=== PATIENT | male | born 1980 | race Caucasian/White ===

== ENCOUNTER 2019-06-07 17:22 | Emergency (ER) | payer BC, SELFPAY ==
[2019-06-07 17:26] VITALS: BP 142/103; PULSE 85; RESP 16; TEMP 37.1; O2SAT 99; BMI 22.7
[2019-06-07 18:24] LABS: Basophils # 0.1 10^3/uL (0.0-0.1); Basophils % 0.6 %; Eosinophils # 0.1 10^3/uL (0.0-0.8); Eosinophils % 1.7 %; Hematocrit 46.5 % (37.0-47.0); Lymphocytes # 1.4 10^3/uL (0.8-4.8); Lymphocytes % 16.7 %; Mean Corpuscular HGB Conc 34.4 g/dL (30.0-36.0); Mean Corpuscular Hemoglobin 33.1 pg (28.0-34.0); Mean Corpuscular Volume 96.1 fL (81-99); Mean Platelet Volume 9.3 fL (7.4-10.4); Monocytes % 11.8 %; Neutrophils # 5.7 10^3/uL (1.8-7.7); Nucleated Red Blood Cells % 0 %; Platelet Count 238 10^3/cmm (130-400); Red Blood Count 4.84 10^6/uL (4.1-5.3); Red Cell Distribution Width 11.8 % (12.1-15.1); White Blood Count 8.3 10^3/uL (4.0-10.0)
[2019-06-07 18:39] LABS: Alanine Aminotransferase 44 U/L (0-33); Albumin Level 5.1 g/dL (3.5-5.2); Alkaline Phosphatase 83 IU/L (35-105); Anion Gap 18.4 (5-19); Aspartate Amino Transferase 61 U/L (0-32); Blood Urea Nitrogen 6 mg/dL (6-20); Calcium 10.2 mg/dL (8.5-10.5); Carbon Dioxide 26 mmol/L (22-29); Chloride 97 mmol/L (98-107); Glomerular Filtration Rate 79.9 mL/min (90-130); Glucose 103 mg/dL (65-115); Lipase 46 U/L (13-60); Potassium 4.4 mmol/L (3.5-5.1); Sodium 137 mmol/L (136-145); Total Bilirubin 0.8 mg/dL (0.15-1.2); Total Protein 8.1 g/dL (6.6-8.7)
[2019-06-07 19:48] LABS: Add Urine Microscopic? NO
[2019-06-07 19:52] LABS: Bilirubin Urine Neg (NEGATIVE); Blood Urine Neg (Negative); Glucose Urine UA Norm (Normal); Ketones Urine 1+ (Negative); Leukocyte Esterase Urine Negative (Negative); Nitrate Urine Negative (Negative); Protein Urine Neg (Negative); Specific Gravity, Urine 1.015 (1.005-1.030); Urine Appearance Clear (CLEAR); Urine Color Yellow (Yellow); Urobilinogen Urine Norm (Negative); pH Urine 6 (5-7)
--- NOTE | 2019-06-07 20:25 | ED_ITS ---
HPI - Abdominal Pain General: Chief Complaint: Abdominal Pain Stated Complaint: BACK AND ABD PAIN Time Seen by Provider: 06/07/19 20:25 Source: patient Mode of arrival: ambulatory Limitations: no limitations History of Present Illness: HPI narrative: Patient comes in today with right upper quadrant abdominal pain. Patient reports nausea and vomiting with this episode lasting 2 days. Patient states that he has had occasional episodes for the last few months. Patient does have a history of alcohol consumption. And smoking. Patient denies any routine medications. Patient appears well. Patient appears in no pain at this time. Associated Symptoms: Reports nausea and vomiting Review of Systems General: Reports: 10 or more systems reviewed and unremarkable except in HPI and below GI: Reports: abdominal pain, nausea and vomiting PFS ED PFSH: Social History Smoking and tobacco status: current every day smoker Alcohol intake: current Physical Exam Const: COMMON NORMALS: no apparent distress and oriented x3 GENERAL APPEARANCE: cooperative HENMT: COMMON NORMALS: normocephalic, external ears normal, EAC's normal, TM's normal bilaterally and external nose normal HEAD & SCALP: normal to inspection and normocephalic FACE & SINUS: normal facial exam NOSE: exter nal nose normal GENERAL EAR: hearing not grossly impaired EXTERNAL EAR: Yes external ears normal EXTERNAL AUDITORY CANAL: EAC's normal TYMPANIC MEMBRANE: TM's normal bilaterally MOUTH: oral and palatal mucosa normal THROAT: posterior oropharynx normal Eye: COMMON NORMALS: PERRL and EOMs intact bilaterally PUPIL: Yes PERRL Neck/C-Spine: COMMON NORMALS: full ROM and no lymphadenopathy Lymph: LYMPHATIC: no lymphedema noted Chest: COMMONS NORMALS: inspection of chest normal and palpation of chest normal Resp: COMMON NORMALS: normal respiratory effort and clear to auscultation bilaterally AUSCULTATION: clear to auscultation bilaterally Cardio: COMMON NORMALS: regular rate and regular rhythm RATE: regular rate RHYTHM: regular rhythm GI: COMMON NORMALS: normal to inspection, nondistended, normoactive bowel sounds PALPATION: Yes tender Details: RUQ : COMMON NORMALS: Yes no CVA tenderness BLADDER/KIDNEY EXAM: Yes no CVA tenderness Back/Pelvis: COMMON NORMALS: no CVA tenderness and thoracic and lumbar spine normal to inspection Extremity: COMMON NORMALS: normal to inspection GENERAL: No edema Neuro: COMMON NORMALS: oriented x3, moves all extremities and no focal motor deficits Psych: COMMON NORMALS: mental status grossly normal and cooperative Skin: COMMON NORMALS: no rashes or lesions noted GENERAL SKIN EXAM: no rashes or lesions noted Course Vital Signs: Vital signs: Vital Signs Temperature 98.8 F 06/07/19 17:26 Pulse Rate 73 06/07/19 21:55 Respiratory Rate 18 06/07/19 21:55 Blood Pressure 150/96 06/07/19 21:55 Pulse Oximetry 97 06/07/19 21:55 MDM - Abdominal Pain MDM Narrative: Medical decision making narrative: Patient comes in today with waxing and waning episodes of nausea vomiting and right upper quadrant abdominal pain. Patient does drink a lot of alcohol he admits to. Patient appears well. Patient appears in no pain at this time. Exam notes abdomen is soft with some epigastric tenderness but no significant right upper quadrant tenderness. Bowel sounds are present throughout. Skin is warm and dry. Vital signs are normal. Differential diagnosis includes cholelithiasis, cholecystitis, pancreatitis, alcoholic hepatitis, alcoholic pancreatitis, gastroenteritis, gastritis. Laboratory values noted some mild elevation in the AST and ALT. Lipase was normal. CBC was insignificant. And metabolic panel noted 137 sodium of 4.[address] scan of the abdomen noted no acute abdominal problem. Ultrasound of the gallbladder noted no gallstones or gallbladder wall thickening suggestive of infection. Reviewed exam with patient recommendations for treatment and need for follow-up. Patient reports understanding and agreed to plan. Lab Data: Labs: Lab Results 06/07/19 06/07/19 06/07/19 Range/Units 18:05 18:05 19:30 WBC 8.3 (4.0-10.0) 10^3/ uL RBC 4.84 (4.1-5.3) 10^6/u L Hgb 16.0 H (11.5-15.3) g/dL Hct 46.5 (37.0-47.0) % MCV 96.1 (81-99) fL MCH 33.1 (28.0-34.0) pg MCHC 34.4 (30.0-36.0) g/dL RDW 11.8 L (12.1-15.1) % Plt Count 238 (130-400) 10^3/c mm MPV 9.3 (7.4-10.4) fL Neut % (Auto) 69.0 % Lymph % (Auto) 16.7 % Mcdowell % (Auto) 11.8 % Eos % (Auto) 1.7 % Baso % (Auto) 0.6 % Neut # (Auto) 5.7 (1.8-7.7) 10^3/u L Lymph # (Auto) 1.4 (0.8-4.8) 10^3/u L Mcdowell # (Auto) 1.0 H (0.2-0.9) 10^3/u L Eos # (Auto) 0.1 (0.0-0.8) 10^3/u L Baso # (Auto) 0.1 (0.0-0.1) 10^3/u L Nucleated RBC % (a uto) 0 % Nucleated RBCs # 0.0 /100WBC Sodium 137 (136-145) mmol/L Potassium 4.4 (3.5-5.1) mmol/L Chloride 97 L (98-107) mmol/L Carbon Dioxide 26 (22-29) mmol/L Anion Gap 18.4 (5-19) BUN 6 (6-20) mg/dL Creatinine 0.8 (0.5-0.9) mg/dL GFR Calculation 79.9 L (90-130) mL/min Glucose 103 (65-115) mg/dL Calcium 10.2 (8.5-10.5) mg/dL Total Bilirubin 0.8 (0.15-1.2) mg/dL AST 61 H (0-32) U/L ALT 44 H (0-33) U/L Alkaline Phosphata se 83 (35-105) IU/L Total Protein 8.1 (6.6-8.7) g/dL Albumin 5.1 (3.5-5.2) g/dL Globulin 3.0 (1.3-4.6) g/dL Lipase 46 (13-60) U/L Urine Color Yellow (Yellow) Urine Appearance Clear (CLEAR) Urine pH 6 (5-7) Ur Specific Gravit y 1.015 (1.005-1.030) Urine Protein Neg (Negative) Urine Glucose (UA) Norm (Normal) Urine Ketones 1+ H (Negative) Urine Blood Neg (Negative) Urine Nitrate Negative (Negative) Urine Bilirubin Neg (NEGATIVE) Urine Urobilinogen Norm (Negative) mg/dL Ur Leukocyte Jyoti ase Negative (Negative) Discharge Plan Discharge Patient Disposition: Home, Self-Care Clinical Impression: Abdominal pain Qualifiers: Abdominal location: epigastric Qualified Code(s): R10.13 - Epigastric pain Condition: Stable Prescriptions: New famotidine 20 mg tablet 20 mg PO BID Qty: 60 RF: 0 ondansetron HCl 4 mg tablet 4 mg PO Q8H PRN (Reason: nausea and vomiting) Qty: 7 RF: 0 Discharge Orders: Discharge Order (Routine); Ordered 06/07/19 Ordered By: Juan Freeman Discharge Diet: Usual diet Discharge Activity: Increase activity as tolerated Patient Instructions: Abdominal Pain (ED) Activity Restrictions/Additional Instructions: try to limit alcohol to two drinks a day Activity as tolerated Healthy diet Medications as directed follow-up with primary care in one week Discharge Date/Time: 06/07/19 21:56 Coding Level of Care Code ED Feather Drying Machine Operator for Radha Fwd Exam Comprehensive
--- NOTE | 2019-06-07 20:29 | US_ITS ---
WS: [id number] ABDOMINAL ULTRASOUND LIMITED REASON FOR VISIT: right upper quad pain, n/v TECHNIQUE: Grayscale and Doppler ultrasound examination of the abdomen. FINDINGS: Pancreas: Within normal limits. Abdominal aorta and IVC: Within normal limits. Liver: Liver measures 10.71 cm in length. Normal hepatopedal portal circulation. Gallbladder: Gallbladder wall thickness measures 2.7 mm. Common bile duct measured 0.48 cm. The gallbladder wall slightly thickened no stones in the gallbladder. Right kidney: Right kidney measures 9.7 cm x 4.7 cm x 4.6 cm. Right kidney cortex measures 1.34 cm. N o stones or hydronephrosis. US/US abdomen limited [id number] IMPRESSION: Mildly thickened wall gallbladder suggests but not conclusive of cholecystitis.
--- NOTE | 2019-06-07 20:29 | CTR_ITS ---
PROCEDURE INFORMATION: Exam: CT Abdomen And Pelvis With Contrast Exam date and time: 06/07/2019 8:54 PM Age: 38 years old Clinical indication: Nausea and vomiting; Abdominal pain; Additional info: N/v, abd pain TECHNIQUE: Imaging protocol: Computed tomography of the abdomen and pelvis with intravenous contrast. Total DLP: 518.99 mGy-cm Radiation optimization: All CT scans at this facility use at least one of these dose optimization techniques: automated exposure control; mA and/or kV adjustment per patient size (includes targeted exams where dose is matched to clinical indication); or iterative reconstruction. Contrast material: OMNI 300; Contrast volume: 95 ml; Contrast route: IV; COMPARISON: No relevant prior studies available. FINDINGS: Liver: Unremarkable. No mass. Gallbladder and bile ducts: Normal. No calcified stones. No ductal dilation. Pancreas: Normal. No ductal dilation. Spleen: Normal. No splenomegaly. Adrenals: Normal. No mass. Kidneys and ureters: Normal. No hydronephrosis. Stomach and bowel: Unremarkable. No obstruction. No mucosal thickening. Appendix: The appendix is not clearly identified. No definitive evidence of appendicitis. Intraperitoneal space: Unremarkable. No free air. No significant fluid collection. Vasculature: Unremarkable. No abdominal aortic aneurysm. Lymph nodes: Unremarkable. No enlarged lymph nodes. Bladder: Unremarkable as visualized. Reproductive: Unremarkable as visualized. Bones/joints: Unremarkable. No acute fracture. Soft tissues: Unremarkable. CT/CT abdomen pelvis w con* [id number] IMPRESSION: 1. The appendix is not clearly identified this examination. No definitive evidence of appendicitis. 2. No other visible evidence of active or acute abdominal or pelvic pathologic process. Radiation Dose CTDIVOL = (mGy): DLP = 518.99 (mGy-cm)
[2019-06-07 20:36] VITALS: BP 170/104; PULSE 73; RESP 20; O2SAT 97
[2019-06-07 21:05] VITALS: BP 148/94; PULSE 70; RESP 16; O2SAT 97
[2019-06-07] MEDS: iohexol 300 mg/mL 100 mL Btl 95 ML IV (21:10)
[2019-06-07 21:42] VITALS: PULSE 73; RESP 16; O2SAT 97
[2019-06-07 21:55] VITALS: BP 150/96; PULSE 73; RESP 18; O2SAT 97
== END 2019-06-07 21:56 | disposition home or self-care (01) ==
PROVIDERS: Emergency Medicine; Emergency Provider Nurse Practitioner Family
DX: R10.9 Unspecified abdominal pain (principal); F17.200 Nicotine dependence, unspecified, uncomplicated
CPT/HCPCS: 36415; 74177; 76705; 80053; 81003; 83690; 85025; 99283; Q9967

== ENCOUNTER 2020-07-21 02:04 | Emergency (ER) | payer BC, SELFPAY ==
[2020-07-21 02:33] VITALS: BP 173/128; PULSE 119; RESP 22; TEMP 36.7; O2SAT 96; BMI 22.7
--- NOTE | 2020-07-21 02:58 | XRR_ITS ---
PROCEDURE INFORMATION: Exam: XR Soft Tissue Neck Exam date and time: 07/21/2020 3:00 AM Age: 39 years old Clinical indication: Other: Foreign body; Patient HX: Patient swallowed a square shaped halls cough drop and states that it feels stuck in his throat. ; Additional info: Foreign body TECHNIQUE: Imaging protocol: XR of the soft tissues of the neck. COMPARISON: CR XR cervical spine 3V* [id number] 02/02/2020 11:39 AM FINDINGS: Airway: Normal. No abnormal narrowing. Soft tissues: Normal. Normal epiglottis. Bones/joints: Unremarkable. XR/XR soft tissue neck [id number] IMPRESSION: No acute findings.
--- NOTE | 2020-07-21 03:19 | W.ED.GENADLT ---
HPI - General Adult General: Chief complaint: Airway/Esophagus Foreign Body Stated complaint: foreign object in throat, possible upper gi bleed Time Seen by Provider: 07/21/20 02:51 Source: patient Mode of arrival: ambulatory Limitations: no limitations History of Present Illness: HPI narrative: 39-year-old male that states that he had swallowed a cough drop an hour ago and felt like it was stuck in his esophagus. States he had pain at first and is generally improved but he still has some pain with swallowing. States unable to drink fluids he was concerned that maybe stuck in his esophagus. He states that he is scheduled to have an upper GI next week for possible upper GI bleed. He denies any new blood in his stool or vomiting blood. He states he is also concerned that the cough drop may go in his trachea. He denies any shortness of breath or chest pain. Associated symptoms: Deny chest pain, dyspnea, headache(s), nausea, rash or vomiting Review of Systems Const: Denies: fever(s), chills, body aches or change in appetite Eyes: Denies: blurry vision or eye discomfort ENMT: Reports: odynophagia Card: Denies: chest pain Resp: Denies: dyspnea GI: Denies: abdominal pain, nausea, vomiting or diarrhea : Denies: dysuria Musc: Denies: neck pain or back pain Skin/Breast: Denies: rash Neuro: Denies: headache(s) Psych: Denies: depression Thompson/Lymph: Denies: easy bruising All/Imm: Denies: urticaria PFSH ED PFSH: Social History Smoking and tobacco status: current every day smoker Alcohol intake: current Physical Exam Const: COMMON NORMALS: no acute distress, patient oriented x3 and healthy appearing HENMT: COMMON NORMALS: normocephalic and atraumatic HEAD & SCALP: normocephalic and atraumatic Eye: COMMON NORMALS: Equal, round and reactive pupils present and EOMs intact bilaterally PUPIL: Yes Equal, round and reactive pupils present Neck/C-Spine: COMMON NORMALS: full ROM and supple Chest: COMMONS NORMALS: normal inspection of the chest and normal palpation of entire chest wall Resp: COMMON NORMALS: normal respiratory effort, No retractions, No use of accessory muscles and clear to auscultation bilaterally AUSCULTATION: clear to auscultation bilaterally Cardio: COMMON NORMALS: regular rate, regular rhythm and No murmurs present (Cardio) RATE: regular rate RHYTHM: regular rhythm GI: COMMON NORMALS: Normal to inspection, nondistended, normoactive bowel sounds present, Soft to palpation, non-tender and no masses PALPATION: Yes Soft to palpation Extremity: COMMON NORMALS: normal to inspection and full ROM Neuro: COMMON NORMALS: patient oriented x3, moves all extremities and no focal motor deficits Psych: COMMON NORMALS: mental status grossly normal, Normal thought process present and cooperative THOUGHT PROCESS: Normal thought process present Skin: COMMON NORMALS: no rashes or lesions noted and no wounds GENERAL SKIN EXAM: no rashes or lesions noted Course Vital Signs: Vital signs: Vital Signs Temperature 98.1 F 07/21/20 02:33 Pulse Rate 119 H 07/21/20 02:33 Respiratory Rate 22 H 07/21/20 02:33 Blood Pressure 173/128 07/21/20 02:33 Pulse Oximetry 96 07/21/20 02:33 MDM - General Adult MDM Narrative: Medical decision making narrative: Patient presents here with foreign body he swallowed. Is a cough lozenge should have dissolved. He states he feels much improved and is able to swallow without any problems. X-ray of his neck is normal. He is stable for discharge and return if worsening. Lab Data: Labs: Lab Results 07/21/20 07/21/20 07/21/20 Range/Units 03:16 03:16 03:16 WBC 6.5 (4.0-10.0) 10^3/ uL RBC 4.67 (4.1-5.3) 10^6/u L Hgb 15.7 (11.7-16.6) g/dL Hct 44.5 (42.0-52.0) % MCV 95.3 H (80-94) fL MCH 33.6 (28.0-34.0) pg MCHC 35.3 (30.0-36.0) g/dL RDW 11.3 L (12.1-15.1) % Plt Count 87 L (130-400) 10^3/c mm MPV 11.3 H (7.4-10.4) fL Neut % (Auto) 70.1 % Lymph % (Auto) 15.6 % Pender % (Auto) 11.9 % Eos % (Auto) 1.8 % Baso % (Auto) 0.3 % Neut # (Auto) 4.58 (1.8-7.7) 10^3/u L Lymph # (Auto) 1.0 (0.8-4.8) 10^3/u L Pender # (Auto) 0.8 (0.2-0.9) 10^3/u L Eos # (Auto) 0.1 (0.0-0.8) 10^3/u L Baso # (Auto) 0.0 (0.0-0.1) 10^3/u L Nucleated RBC % (a uto) 0 % Nucleated RBCs # 0.0 /100WBC PT Cancelled INR Cancelled Sodium Cancelled Potassium Cancelled Chloride Cancelled Carbon Dioxide Cancelled Anion Gap Cancelled BUN Cancelled Creatinine Cancelled GFR Calculation Cancelled Glucose Cancelled Calculated Osmolal ity Cancelled Calcium Cancelled Total Bilirubin Cancelled AST Cancelled ALT Cancelled Alkaline Phosphata se Cancelled Total Protein Cancelled Albumin Cancelled Globulin Cancelled Imaging Data^: xr neck: Attestation: I personally reviewed and interpreted this imaging study as follows: My impression: no acute findings Discharge Plan Discharge Patient Disposition: Home Clinical Impression: Esophageal foreign body Qualifiers: Encounter type: initial encounter Qualified Code(s): T18.108A - Unspecified foreign body in esophagus causing other injury, initial encounter Condition: Stable Prescriptions: No Action famotidine 20 mg tablet 20 mg PO BID Qty: 60 RF: 0 ondansetron HCl 4 mg tablet 4 mg PO Q8H PRN (Reason: nausea and vomiting) Qty: 7 RF: 0 Discharge Orders: Discharge ED (Routine); Ordered 07/21/20 Ordered By: Mario Reyes Referrals: [facility], [Primary Care Provider] - Discharge Diet: Advance as tolerated Discharge Activity: Resume usual activity Patient Instructions: Foreign Body - Swallowed Coding Level of Care Code ED Facilities Maintenance Engineer for Chg Fwd Exam Comprehensive
[2020-07-21 03:23] LABS: Basophils % 0.3 %; Eosinophils # 0.1 10^3/uL (0.0-0.8); Eosinophils % 1.8 %; Hematocrit 44.5 % (42.0-52.0); Hemoglobin 15.7 g/dL (11.7-16.6); Lymphocytes % 15.6 %; Mean Corpuscular HGB Conc 35.3 g/dL (30.0-36.0); Mean Corpuscular Hemoglobin 33.6 pg (28.0-34.0); Mean Corpuscular Volume 95.3 fL (80-94); Mean Platelet Volume 11.3 fL (7.4-10.4); Monocytes # 0.8 10^3/uL (0.2-0.9); Monocytes % 11.9 %; Neutrophils # 4.58 10^3/uL (1.8-7.7); Neutrophils % 70.1 %; Nucleated Red Blood Cells % 0 %; Platelet Count 87 10^3/cmm (130-400); Red Blood Count 4.67 10^6/uL (4.1-5.3); Red Cell Distribution Width 11.3 % (12.1-15.1); White Blood Count 6.5 10^3/uL (4.0-10.0)
== END 2020-07-21 03:54 | disposition home or self-care (01) ==
PROVIDERS: Emergency Provider Emergency Medicine
DX: T18.108A Unspecified foreign body in esophagus causing other injury, initial encounter (principal); F17.210 Nicotine dependence, cigarettes, uncomplicated; X58.XXXA Exposure to other specified factors, initial encounter
CPT/HCPCS: 70360; 85025; 99282

== ENCOUNTER 2020-07-23 14:05 | Outpatient (CLI) | payer BC, SELFPAY ==
--- NOTE | 2020-07-23 | US_ITS ---
WS: [id number] RIGHT UPPER QUADRANT ULTRASOUND HISTORY: ALCOHOL ABUSE COMPARISON: 06/07/2019 Liver: 18.1 cm in length. Moderately enlarged liver with coarse echotexture and attenuation. No mass or bile duct dilatation identified. Gallbladder: Normally distended gallbladder with no stones or wall thickening. CBD: 0.3 cm Pancreas: Normal size and echogenicity. Right kidney: 10.8 cm in length. Normal size and echogenicity. No hydronephrosis or mass. Aorta and IVC: Unremarkable abdominal aorta and IVC. No ascites. US/US liver [id number] IMPRESSION: 1. Negative gallbladder. 2. Moderate hepatomegaly and hepatic steatosis.
== END 2020-07-23 14:06 | disposition home or self-care (01) ==
PROVIDERS: Visit Provider Nurse Practitioner Family
DX: F10.10 Alcohol abuse, uncomplicated (principal); R16.0 Hepatomegaly, not elsewhere classified; K76.0 Fatty (change of) liver, not elsewhere classified
CPT/HCPCS: 76705

== ENCOUNTER 2020-08-09 07:56 | Day surgery (SDC) | payer BC, SELFPAY ==
[2020-08-07 10:23] VITALS: BMI 22.7
--- NOTE | 2020-08-09 08:16 | ANES.PREANE2 ---
Pre-Anesthetic Assessment Pre-Anesthetic Assessment: Height/Weight: Height 1.7 m Weight 65.771 kg Proposed Procedure: Operation Date: 08/09/20 09:45 Proposed Procedures p EGD 15362 K92.1(Not Applicable) - Urbano Conner MD Was Beta Darinel taken within 24 hours: N/A Was Clonidine taken within 24 hours: N/A Social: Social History: Alcohol Exam: Pre-Anes Outpt Exam: alert, oriented x 3, clear to auscultation bilaterally and regular rate & rhythm Airway: Submandibular: WNL Cervical ROM: WNL MP: 2 Additional comments: poor dentition CV/HEM: CV/HEM: Anemia GI: GI: GERD Neuropsych: Neuropsych: Anxiety Anesthetic Plan: ASA status: 3 Anesthesia: MAC Risk of > 500 ml blood loss (7ml/kg in children): No PFSH Anesthesia PFSH: Family History Denies family history of Anesthesia complication Bleeding disorder Social History Smoking and tobacco status: current every day smoker Alcohol intake: current Data Anesthesia Cardiac Studies: No Data to Display
[2020-08-09 08:56] VITALS: BP 167/106; PULSE 99; RESP 20; TEMP 36.6; O2SAT 100
[2020-08-09] MEDS: sodium chloride 0.9% 1,000 ML 30 ML IV (09:12)
--- NOTE | 2020-08-09 10:08 | W.PM.OPSUD ---
Surgery/Procedure H&P Update DATE OF PROCEDURE: August 09, 2020 DATE H&P PERFORMED: 07/23/20 H&P UPDATE INFORMATION: I have reviewed H&P completed within last 30 days, I have examined patient prior to procedure and No changes to prior documentation PREOP DIAGNOSIS: upper gi symptoms PLANNED PROCEDURE: Operation Date: 08/09/20 09:45 Proposed Procedures p EGD 38352 K92.1(Not Applicable) - Urbano Conner MD
[2020-08-09 10:26] VITALS: BP 149/102; PULSE 98; RESP 18; TEMP 36.7; O2SAT 96
[2020-08-09 10:37] VITALS: BP 148/90; PULSE 90; RESP 18; TEMP 36.9; O2SAT 98
--- NOTE | 2020-08-09 17:13 | ANE.PACU2 ---
Inpatient post-anesthesia follow up: Airway intact: Yes Vital signs: Temperature 98.4 F Pulse Rate 90 Respiratory Rate 18 Blood Pressure 148/90 Pulse Oximetry 98 Oxygen Delivery Me thod Room Air Oxygen Flow Rate Fraction of Inspir ed Oxygen Hydration adequate: Yes Nausea and vomiting: No Pain level: 1 Mental status: Baseline
== END 2020-08-09 10:54 | disposition home or self-care (01) ==
PROVIDERS: PCP Nurse Practitioner Family; Visit Provider Surgery
PROC: 0DJ08ZZ Inspection of Upper Intestinal Tract, Via Natural or Artificial Opening Endoscopic (ICD-10-PCS; CPT 43235; principal; 2020-08-09 09:45)
DX: K92.1 Melena (principal); K21.9 Gastro-esophageal reflux disease without esophagitis; K29.70 Gastritis, unspecified, without bleeding; F17.210 Nicotine dependence, cigarettes, uncomplicated
CPT/HCPCS: 43239; 88305; 96360; 96361; J2250; J2704; J3010; J7030

== ENCOUNTER 2021-02-26 17:27 | Inpatient (IN) | payer BC, SELFPAY ==
[2021-02-26 17:31] VITALS: BP 145/104; PULSE 120; RESP 22; TEMP 36.6; O2SAT 97; BMI 22.7
--- NOTE | 2021-02-26 17:57 | W.ED.GENADLT ---
HPI - General Adult General: Chief complaint: Psychiatric Symptoms Stated complaint: SI Time Seen by Provider: 02/26/21 17:29 History of Present Illness: HPI narrative: HPI: [40]yo patient w/ hx of depression BIBA for depression, alcohol dependence and inability to take care of self. Per police lieutenant patrol who was doing the wellness check, patient was drunk in disheveled state with beer cans and multiple access to weapons. Patient verbalizes desire to . On arrival, the patient is AAOx3 and cooperative with my evaluation. No focal complaints of chest pain, shortness of breath, palpitations, N/V, focal GI/ complaints. No complaints of hallucinations. Onset: unknown Duration: ongoing Location: home Severity: severe Review of Systems Narrative: Constitutional: No fever, no chills. HEENT: No vision changes CV: No chest pain, no palpitations PULM: No productive cough, no dyspnea. GI: No abdominal pain, no N/V/D. : No dysuria MSKEL: No muscle pain SKIN: No new rashes, no lesions. NEURO: No headache, no focal weakness. HEME: No visible bruises PSYCH: +depressed mood PFSH ED PFSH: Medical History (Updated 03/01/21 @ 00:01 by ) Gastritis Surgical History (Updated 08/09/20 @ 10:22 by Urbano Conner MD) H/O esophagogastroduodenoscopy Family History Denies family history of Anesthesia complication Bleeding disorder Social History Smoking and tobacco status: current every day smoker Alcohol intake: current Physical Exam Narrative: EXAM NARRATIVE: Head: Atraumatic Eyes: PERRL, conjunctiva without injection, eyes tracking ENT: Mucous membrane moist NECK: Supple without lymphadenopathy LUNGS: LCTAB CV: RRR ABDOMEN: Soft, nontender EXTREMITY: Normal ROM SKIN: No rash or erythema NEURO: Awake and alert. No focal weakness PSYCH: Cooperative mood and affect. Course Vital Signs: Vital signs: Vital Signs Temperature 98.1 F 02/28/21 10:38 Pulse Rate 88 02/28/21 10:38 Respiratory Rate 18 02/28/21 10:38 Blood Pressure 148/100 02/28/21 10:38 Pulse Oximetry 98 02/28/21 10:38 MDM - General Adult MDM Narrative: Medical decision making narrative: [40]yo patient w/ no known PMH presenting for depression and inability to take care of self. HDS, exam within normal limit Thoughts are linear and organized, and the patient has no AH/VH, or HI. Clinically the patient displays no overt toxidrome; they are well appearing, with low suspicion for toxic ingestion given history and exam. Symptoms unlikely 2/2 anemia, hypothyroidism, infection, or ICH. Workup: CBC, CMP, Lipase, salicylate/tylenol, UDS Lab findings: wnl [7:30pm] On reassessment, labs and workup wnl. Patient is hemodynamically stable with no acute medical complaints. Case discussed with psychiatric provider Dr. Harrell at [facility] psych inpatient with recommendation for admission Disposition: Psych Lab Data: Labs: Lab Results 02/26/21 02/26/21 02/26/21 18:20 18:20 18:20 WBC 7.0 10^3/uL 10^3/ uL (4.0-10.0) RBC 5.22 10^6/uL 10^6 /uL (4.1-5.3) Hgb 17.0 g/dL H g/dL (11.7-16.6) Hct 49.3 % % (42.0-52.0) MCV 94.4 fl H fl (80-94) MCH 32.6 pg pg (28.0-34.0) MCHC 34.5 g/dL g/dL (30.0-36.0) RDW 12.1 % % (12.1-15.1) Plt Count 299 10^3/cmm 10^3 /cmm (130-400) MPV 9.3 fL fL (7.4-10.4) Neut % (Auto) 46.0 % % Lymph % (Auto) 37.8 % % [place] % (Auto) 11.2 % % Eos % (Auto) 3.7 % % Baso % (Auto) 1.2 % % Neut # (Auto) 3.19 10^3/uL 10^3 /uL (1.8-7.7) Lymph # (Auto) 2.6 10^3/uL 10^3/ uL (0.8-4.8) [place] # (Auto) 0.8 10^3/uL 10^3/ uL (0.2-0.9) Eos # (Auto) 0.3 10^3/uL 10^3/ uL (0.0-0.8) Baso # (Auto) 0.1 10^3/uL 10^3/ uL (0.0-0.1) Nucleated RBC % (a uto) 0 % % Nucleated RBCs # 0.0 /100WBC /100W BC Sodium 143 mmol/L mmol/L (136-145) Potassium 4.1 mmol/L mmol/L (3.5-5.1) Chloride 101 mmol/L mmol/L (98-107) Carbon Dioxide 24 mmol/L mmol/L (22-29) Anion Gap 22.1 H (5-19) BUN 4 mg/dL L mg/dL (6-20) Creatinine 0.6 mg/dL L mg/dL (0.7-1.2) GFR Calculation 148.5 mL/min H mL /min (90-130) Glucose 84 mg/dL mg/dL (65-115) Calculated Osmolal ity 292 mOsm/kg mOsm/ kg (285-295) Calcium 8.7 mg/dL mg/dL (8.5-10.5) Salicylates < 0.3 mg/dL L mg/ dL (3-10) Urine Opiates Scre en Acetaminophen < 5.0 ug/mL L ug/ mL (10-30) Ur Barbiturates Sc reen Ur Phencyclidine S crn Ur Amphetamines Sc reen U Benzodiazepines Scrn Urine Cocaine Scre en U Marijuana (THC) Screen Ethyl Alcohol 389 mg/dL H* mg/d L (0-10) 02/26/21 18:25 WBC RBC Hgb Hct MCV MCH MCHC RDW Plt Count MPV Neut % (Auto) Lymph % (Auto) [place] % (Auto) Eos % (Auto) Baso % (Auto) Neut # (Auto) Lymph # (Auto) [place] # (Auto) Eos # (Auto) Baso # (Auto) Nucleated RBC % (a uto) Nucleated RBCs # Sodium Potassium Chloride Carbon Dioxide Anion Gap BUN Creatinine GFR Calculation Glucose Calculated Osmolal ity Calcium Salicylates Urine Opiates Scre en Negative ng/mL ng /mL (Negative) Acetaminophen Ur Barbiturates Sc reen Negative ng/mL ng /mL (Negative) Ur Phencyclidine S crn Negative ng/mL ng /mL (Negative) Ur Amphetamines Sc reen Negative ng/mL ng /mL (Negative) U Benzodiazepines Scrn Negative ng/mL ng /mL (Negative) Urine Cocaine Scre en Negative ng/mL ng /mL (Negative) U Marijuana (THC) Screen Positive ng/mL H ng/mL (Negative) Ethyl Alcohol Discharge Plan Discharge Patient Disposition: Admitted As Inpatient Admit Provider: Gal Harrell Clinical Impression: Depression, Self neglect, Alcohol dependence Condition: Stable Discharge Diet: Regular Discharge Activity: Resume usual activity Coding Level of Care Code ED Field Advisor for Radha May
[2021-02-26 18:45] LABS: Basophils # 0.1 10^3/uL (0.0-0.1); Basophils % 1.2 %; Eosinophils # 0.3 10^3/uL (0.0-0.8); Eosinophils % 3.7 %; Hematocrit 49.3 % (42.0-52.0); Lymphocytes # 2.6 10^3/uL (0.8-4.8); Lymphocytes % 37.8 %; Mean Corpuscular HGB Conc 34.5 g/dL (30.0-36.0); Mean Corpuscular Hemoglobin 32.6 pg (28.0-34.0); Mean Corpuscular Volume 94.4 fl (80-94); Mean Platelet Volume 9.3 fL (7.4-10.4); Monocytes # 0.8 10^3/uL (0.2-0.9); Monocytes % 11.2 %; Neutrophils # 3.19 10^3/uL (1.8-7.7); Nucleated Red Blood Cells % 0 %; Platelet Count 299 10^3/cmm (130-400); Red Blood Count 5.22 10^6/uL (4.1-5.3); Red Cell Distribution Width 12.1 % (12.1-15.1)
[2021-02-26 19:06] LABS: Amphetamines Screen Urine Negative (Negative); Barbiturates Screen Urine Negative (Negative); Benzodiazepines Screen Urine Negative (Negative); Cocaine Screen Urine Negative (Negative); Opiate Screen Urine Negative (Negative); PCP Screen Urine Negative (Negative); THC Screen Urine Positive (Negative)
[2021-02-26 19:08] LABS: Anion Gap 22.1 (5-19); Blood Urea Nitrogen 4 mg/dL (6-20); Calcium 8.7 mg/dL (8.5-10.5); Carbon Dioxide 24 mmol/L (22-29); Chloride 101 mmol/L (98-107); Glomerular Filtration Rate 148.5 mL/min (90-130); Glucose 84 mg/dL (65-115); Osmolality Calculated 292 mOsm/kg (285-295); Potassium 4.1 mmol/L (3.5-5.1); Sodium 143 mmol/L (136-145)
[2021-02-26 19:09] LABS: Acetaminophen < 5.0 ug/mL (10-30); Creatinine Clr Calc Pharmacy 151.1776; Salicylate < 0.3 mg/dL (3-10)
[2021-02-26] MEDS: nicotine 21 mg Patch 1 PATCH TRANSDERMA (19:10)
[2021-02-26 19:14] VITALS: BP 143/95; PULSE 100; RESP 20; O2SAT 98
[2021-02-26] MEDS: chlordiazePOXIDE 25 mg Capsule PO (19:44)
[2021-02-26 20:18] VITALS: BP 143/93; PULSE 100; RESP 20; O2SAT 98
[2021-02-26 21:17] VITALS: BP 152/90; PULSE 105; RESP 18; TEMP 36.8; O2SAT 94
[2021-02-26] MEDS: hyDROXYzine 25 mg Capsule 50 MG PO (21:31)
[2021-02-26] MEDS: trazodone 50 mg Tablet PO (21:31)
[2021-02-26 21:47] LABS: Alcohol Level 389 mg/dL (0-10)
[2021-02-26] MEDS: quetiapine 100 mg Tablet PO (22:07)
--- NOTE | 2021-02-26 22:39 | PC.ADMIT ---
[address] Admission Note: Krish Read is a 40 year old male brought in by EMS after family called law enforcement for welfare check. Patient was found by police passed out with several beer cans stroon about. Patient stated he wanted to to law enforcement and was put on a 96 hour hold. Patient is admitted for suicidal ideation and self care deficit related to alcohol use disorder. He reports a medical history of stomach promblems due to drinking. Patient's blood alcohol level was 389 upon arrival to NPU. Patient is obviously intoxicated on the unit. Patient can be irritable at times but is easily redirected. He is alert and oriented. He has fair insight, poor judgement and poor coping skills. His eye contact is poor. His thought process is tangential with no delusional or paranoid content. His speech is slightly slurred with normal rate and volume. He denies suicidal/homicidal ideation at this time. He denies hallucinations or paranoia. Patient denies pain. He reports he has been noncompliant with psychotropic medications. Patient is on CIWA protocol. He is a daily cigarette smoker and sats at 94% on room air. His respirations are even and unlabored. His skin is warm and dry. He denies symptoms of withdrawal but has anxious affect. The patient,Krish Read,40 y/o, was given written information regarding hospital policies, unit procedures and contact persons. Patient's smoking status: current every day smoker. Vital Signs - 8 hr 02/26/21 17:31 02/26/21 19:14 02/26/21 20:18 Temperature 97.9 F Pulse Rate 120 H 100 100 Respiratory Rate 22 H 20 H 20 H Blood Pressure 145/104 143/95 143/93 Pulse Oximetry 97 98 98 02/26/21 21:17 Temperature 98.2 F Pulse Rate 105 H Respiratory Rate 18 Blood Pressure 152/90 Pulse Oximetry 94
[2021-02-27 06:00] VITALS: BP 113/75; PULSE 105; RESP 21; TEMP 37; O2SAT 99
--- NOTE | 2021-02-27 07:09 | PC.NURSE ---
pt stated i have chest pain. my chest feels tight and heavy and it goes down my arm into my back aid assessed vitals, all within normal limits. pt also stated that he was seen in ED a couple weeks ago and left AMA. notified nurse
--- NOTE | 2021-02-27 08:17 | P.NPUHP_ITS ---
Providers/Chief Complaint Admitting Physician: Gal Harrell MD Primary Care Provider: CON Rosenthal Chief Complaint: SI HPI NPU History of Present Illness Krish Read is a 40 year old male admitted through the emergency department with the following report: HPI narrative: HPI: [40]yo patient w/ hx of depression BIBA for depression, alcohol dependence and inability to take care of self. Per police matron who was doing the wellness check, patient was drunk in disheveled state with beer cans and multiple access to weapons. Patient verbalizes desire to . On arrival, the patient is AAOx3 and cooperative with my evaluation. No focal complaints of chest pain, shortness of breath, palpitations, N/V, focal GI/ complaints. []Currently denies SI/HI. No complaints of hallucinations. He was admitted to the neuropsychiatry unit for definitive treatment of these issues. He said that his father sent the police out to check on him. He said that his father was concerned because he lives so far out of town. He has been having relationship problems. He has breaking up with his significant other of the last 2 years. She had been very concerned for him and making sure he took his medicine every day. He was very intoxicated and even when he arrived here in the unit he had an alcohol level of 319. He says that he has been drinking more and his canine enforcement officer and his sister have set up a 30-day treatment program that he is supposed to start Thursday in [place]. He does not know the name of it. However she took his Effexor about 2 weeks ago and he has not had it since then. His that depression has been worse since then. He also went through some significant withdrawal symptoms. He has been depressed lately but denies suicidal ideation. He said if he told the circus train supervisor that he wanted to it was just as a joke. He was very intoxicated. He says that despite his intoxication and being given the trazodone 50 mg and Seroquel 100 he did not sleep when he came in last night. Would like something stronger to help him sleep and agreed to increase the trazodone to 100 mg. He does feel like the Effexor was helpful. He would like to get back on it. He does not feel that he needs to be in the hospital. He denies any suicidal ideation at this time. He admits to 1 prior hospitalization about 1 year ago in [place] when he was working out there. He works installing underground piping. Meds NPU Home Medications Medication Instructions Recorded Confirmed Last Taken Type folic acid 1 mg PO DAILY 08/09/20 02/26/21 08/08/20 History pantoprazole [Protonix] 40 mg PO BID #28 tab 08/09/20 02/26/21 Unknown Rx thiamine HCl (vitamin B1) [Vitamin 100 mg PO DAILY 08/09/20 02/26/21 08/08/20 History B-1] Allergies Allergy/AdvReac Type Severity Reaction Status Date / Time lorazepam [From Ativan] Allergy ADR-Agitate Verified 02/26/21 22:38 d PFSH NPU PFSH: Medical History (Updated 02/27/21 @ 14:59 by Gal Harrell MD) Gastritis Surgical History (Updated 08/09/20 @ 10:22 by Urbano Conner MD) H/O esophagogastroduodenoscopy Family History Denies family history of Anesthesia complication Bleeding disorder Social History Smoking and tobacco status: current every day smoker Alcohol intake: current Mental Status Exam MSE Comments: This is a 40-year-old appropriate weight well-developed well- nourished male of about the stated age in no acute distress. He is dressed in hospital scrubs with a few days of growth in his adams. psychomotor activity normal. Speech is at a regular rate and rhythm, normal volume, good articulation, not pressured. Alert, oriented X3 Attention and concentration within normal limits. Memory is intact Mood is depressed. Affect is mildly dysphoric. Thought process is logical and goal-directed. Thought content: Denies auditory and visual hallucinations. No delusions or paranoia are noted. No current suicidal ideation, and no homicidal ideation. Fund of knowledge is within normal limits. Insight and judgment appear to be fair. Impulse control is probably good when he is sober. Vitals/I&O/Wt Last Vital Signs Temp 98.6 F 02/27/21 06:00 Pulse 105 H 02/27/21 06:00 Resp 21 H 02/27/21 06:00 BP 113/75 02/27/21 06:00 Pulse Ox 99 02/27/21 06:00 Weight last 48 hrs Weight 65.771 kg Data NPU : 02/26/21 18:20 02/26/21 18:20 A&P Assessment and plan (1) Major depressive disorder, recurrent, moderate: Plan: 1. Restart Effexor at 75 mg and increased to 150 mg at discharge. Increase trazodone to 100 mg at bedtime to help sleep 2. Continue every 15 minute checks for safety. 3. Encourage individual, group and milieu therapies. 4. Encourage sober living treatment after discharge at the highest level of care to which he is willing to commit. 5. We will monitor for safety for himself in the community prior to discharge. Status: Acute (2) Alcohol dependence: Status: Acute (3) Gastritis: Status: Acute (4) Self neglect: Status: Acute Involuntary Hold Information 96 Hour Hold: 96 Hour Involuntary Admission: Yes 96 Hour Hold Ending Date: 03/05/21 96 Hour Hold Ending Time: 17:50 Attestations NPU Medical Necessity Statement*: Inpatient hospitalization is medically necessary and the clinically appropriate intervention at this time. We will initiate medications and make changes as indicated. He will be in the hospital for over 2 midnights. Likely length of stay 4-6 days Coding Level of Care Code Acute Engine Lathe Set Up Operator for Chg Fwd Diagnoses Major depressive disorder, recurrent, moderate F33.1 Alcohol dependence F10.20 Gastritis K29.70 Self neglect R46.89
[2021-02-27] MEDS: famotidine 20 mg Tablet PO ×2 (08:55→17:20)
[2021-02-27] MEDS: pantoprazole DR 40 mg Tablet PO ×2 (08:55→17:20)
[2021-02-27] MEDS: OLANZapine 5 mg ODT PO (08:55)
[2021-02-27] MEDS: folic acid 1 mg Tablet PO (08:55)
[2021-02-27] MEDS: thiamine 100 mg Tablet PO (08:55)
--- NOTE | 2021-02-27 12:59 | NPU.GN ---
[facility] Unit Group Topic:Group Topic: Pie of Emotions, Coping, and Supports General Mood of Group: Krish did attend group and participated. He was pleasant with all and did well with the group therapy activity. Krish spoke with this residential mortgage underwriter after group and was aided in [facility] services. He admitted that he has an issue with being homeless and his alcohol use.
[2021-02-27 14:00] VITALS: BP 144/90; PULSE 77; RESP 18; TEMP 36.2; O2SAT 98
[2021-02-27] MEDS: nicotine 21 mg Patch 1 PATCH TRANSDERMA (14:18)
[2021-02-27] MEDS: venlafaxine ER (24HR) 75 mg Capsule PO (17:20)
[2021-02-27 21:01] VITALS: BP 137/91; PULSE 73; RESP 18; O2SAT 98
[2021-02-27] MEDS: trazodone 50 mg Tablet 100 MG PO (21:04)
[2021-02-28 06:00] VITALS: BP 148/100; PULSE 88; RESP 18; O2SAT 98
--- NOTE | 2021-02-28 07:57 | P.NPUDS_ITS ---
Diagnoses at Discharge Discharge Diagnosis (1) Major depressive disorder, recurrent, moderate: Status: Acute (2) Alcohol dependence: Status: Acute (3) Gastritis: Status: Acute (4) Self neglect: Status: Acute Reason for Visit Reason for Visit: SI Brief History: History of Present Illness Krish Read is a 40 year old male admitted through the emergency department with the following report: HPI narrative: HPI: [40]yo patient w/ hx of depression BIBA for depression, alcohol dependence and inability to take care of self. Per bank operations officer who was doing the wellness check, patient was drunk in disheveled state with beer cans and multiple access to weapons. Patient verbalizes desire to . On arrival, the patient is AAOx3 and cooperative with my evaluation. No focal complaints of chest pain, shortness of breath, palpitations, N/V, focal GI/ complaints. []Currently denies SI/HI. No complaints of hallucinations. He was admitted to the neuropsychiatry unit for definitive treatment of these issues. He said that his father sent the police out to check on him. He said that his father was concerned because he lives so far out of [facility]. He has been having relationship problems. He has breaking up with his significant other of the last 2 years. She had been very concerned for him and making sure he took his medicine every day. He was very intoxicated and even when he arrived here in the unit he had an alcohol level of 319. He says that he has been drinking more and his special service officer and his sister have set up a 30-day treatment program that he is supposed to start Thursday in [place]. He does not know the name of it. However she took his Effexor about 2 weeks ago and he has not had it since then. His that depression has been worse since then. He also went through some significant withdrawal symptoms. He has been depressed lately but denies suicidal ideation. He said if he told the logistic specialist that he wanted to it was just as a joke. He was very intoxicated. He says that despite his intoxication and being given the trazodone 50 mg and Seroquel 100 he did not sleep when he came in last night. Would like something stronger to help him sleep and agreed to increase the trazodone to 100 mg. He does feel like the Effexor was helpful. He would like to get back on it. He does not feel that he needs to be in the hospital. He denies any suicidal ideation at this time. He admits to 1 prior hospitalization about 1 year ago in [place] when he was working out there. He works installing underground piping. Hospital Course Hospital Course He slowly acclimated to the individual, group and milieu therapies provided. He was given 2 doses of Effexor 75 mg and given a prescription for 150 mg upon discharge. He consistently denied suicidal ideation throughout the hospitalization. He tolerated these doses and showed steady improvement during his stay. He was able to contract for safety outside hospital prior to discharge. During the hospitalization, patient had routine laboratory studies which were within normal limits except for few outliers. Additionally there was a general medical evaluation which was also within normal limits and revealed no new acute processes. Discharge Summary: At the time of discharge, lethality was denied and psychosis was resolving. Mood and anxiety were well managed. Patient endorsed a plan to follow-up with the aftercare recommendations of the treatment team. Patient was evaluated and deemed to be absent credible lethality, and had achieved the maximum benefit from an inpatient hospitalization, so was discharged. Involuntary Hold Information 96 Hour Hold: 96 Hour Involuntary Admission: Yes 96 Hour Hold Ending Date: 03/05/21 96 Hour Hold Ending Time: 17:50 Mental Status Exam MSE Comments: This is a 40-year-old appropriate weight well-developed well- nourished male of about the stated age in no acute distress. He is dressed in hospital scrubs with a few days of growth in his adams. psychomotor activity normal. Speech is at a regular rate and rhythm, normal volume, good articulation, not pressured. Alert, oriented X3 Attention and concentration within normal limits. Memory is intact Mood is depressed. Affect is mildly dysphoric. Thought process is logical and goal-directed. Thought content: Denies auditory and visual hallucinations. No delusions or paranoia are noted. No current suicidal ideation, and no homicidal ideation. Fund of knowledge is within normal limits. Insight and judgment appear to be fair. Impulse control is probably good when he is sober. Cognition: Patient Appearance: Appropriate Level of Consciousness: Awake, Alert and Appropriate Patient Cognition Impaired: No Ability to Follow Directions: Fair Patient Orientation (long list): Person, Place and Time Comprehension Ability: No Impairment Hallucination Type: None Delusion Description: Not Present Thought Process: Appropriate Affect: Affect Description: Appropriate and Calm Behavior: Patient Behavior: Appropriate and Cooperative Speech Pattern: Clear Discharge Data Vitals: Last Vital Signs Temp 97.2 F L 02/27/21 14:00 Pulse 88 02/28/21 06:00 Resp 18 02/28/21 06:00 BP 148/100 02/28/21 06:00 Pulse Ox 98 02/28/21 06:00 Discharge Plan Discharge Patient Disposition: Home Condition: Stable Prescriptions: New venlafaxine 150 mg Capsule,Extended Release 24hr 150 mg PO DAILY 30 Days Qty: 30 RF: 1 trazodone 150 mg Tablet 150 mg PO BEDTIME PRN (Reason: Sleep) 3 Days Qty: 30 RF: 1 Continued thiamine HCl (vitamin B1) [Vitamin B-1] 100 mg Tablet 100 mg PO DAILY RF: 0 folic acid 1 mg Tablet 1 mg PO DAILY RF: 0 pantoprazole [Protonix] 40 mg tablet,delayed release (DR/EC) 40 mg PO BID Qty: 28 RF: 0 Discharge Orders: Discharge Order (Routine); Ordered 02/28/21 Ordered By: Gal Harrell Referrals: Sharon Oswald FNP [Primary Care Provider] - Discharge Diet: Regular Discharge Activity: Resume usual activity Patient Instructions: Opioid Safety Discharge Attestations NPU Time Spent in Discharge Care*: greater than 30 min Specific Discharge Activities: Specific discharge activities: educating patient, discussing with outpatient case manager/social workers/dc planners, documenting/other paperwork and evaluating patient/reviewing data Coding Level of Care Code Acute Chg DC note Diagnoses Major depressive disorder, recurrent, moderate F33.1 Alcohol dependence F10.20 Gastritis K29.70 Self neglect R46.89
[2021-02-28] MEDS: nicotine 21 mg Patch 1 PATCH TRANSDERMA (08:30)
[2021-02-28] MEDS: thiamine 100 mg Tablet PO (08:31)
[2021-02-28] MEDS: famotidine 20 mg Tablet PO (08:31)
[2021-02-28] MEDS: folic acid 1 mg Tablet PO (08:31)
[2021-02-28] MEDS: pantoprazole DR 40 mg Tablet PO (08:31)
[2021-02-28] MEDS: venlafaxine ER (24HR) 75 mg Capsule PO (08:32)
[2021-02-28 10:38] VITALS: BP 148/100; PULSE 88; RESP 18; TEMP 36.7; O2SAT 98
== END 2021-02-28 10:59 | disposition home or self-care (01) | DRG 885 ==
LOC: ER 19:28 → NP 23:51
PROVIDERS: Admitting Provider Psychiatry & Neurology Psychiatry; Emergency Provider Emergency Medicine; PCP Nurse Practitioner Family; Visit Provider Psychiatry & Neurology Psychiatry
DX: F33.1 Major depressive disorder, recurrent, moderate (principal); F10.229 Alcohol dependence with intoxication, unspecified; Y90.8 Blood alcohol level of 240 mg/100 ml or more; F17.200 Nicotine dependence, unspecified, uncomplicated; K29.70 Gastritis, unspecified, without bleeding; Z63.0 Problems in relationship with spouse or partner; Z74.1 Need for assistance with personal care
CPT/HCPCS: 80048; 80306; 80307; 85025